=== PATIENT | female | born 1930 | race Caucasian/White ===

== ENCOUNTER → 2019-03-04 | Outpatient (CLI) | payer MEDICARE, OTHER ==
[~2019-03-04] MED LIST: HYDR-3165 PO
--- NOTE | 2019-03-04 13:04 | RAD ---
Five-view lumbar spine series Clinical indications: Low back pain FINDINGS: Mild dextroscoliosis is seen. There is mild slippage of L2 with respect to L3 towards the right side of 11 millimeters. The transverse processes are intact. 4 lumbar type vertebrae are evident. No compression fracture or discitis or lytic process is evident. There is severe degenerative disc space narrowing and moderate degenerative endplate spurring at L2-3 and L4-S1. Degenerative facet arthropathy is evident. No spondylolysis is seen. Minimal grade 1 anterolisthesis of L4-5 is seen. Calcified abdominal aortic aneurysm is seen which measures 3.6 cm in greatest AP dimension. IMPRESSION: Degenerative lumbar spondylosis. No acute compression fracture is evident. Calcified abdominal aortic aneurysm. Note is made of bibasilar interstitial lung disease. Electronically signed by: Mike Palacios MD (03/04/2019 1:01 PM) [facility]
== END | disposition home or self-care (01) ==
LOC: DXRAD 10:27
PROVIDERS: ATTEND Physician Assistant Medical
DX: M47.816 Spondylosis without myelopathy or radiculopathy, lumbar region (principal); I71.4 Abdominal aortic aneurysm, without rupture; J84.9 Interstitial pulmonary disease, unspecified; M12.88 Other specific arthropathies, not elsewhere classified, other specified site; M41.86 Other forms of scoliosis, lumbar region; M48.061 Spinal stenosis, lumbar region without neurogenic claudication; M46.06 Spinal enthesopathy, lumbar region; M43.16 Spondylolisthesis, lumbar region
CPT/HCPCS: 72110

== ENCOUNTER 2019-03-07 08:57 | Emergency (ER) | payer MEDICARE, OTHER ==
[~2019-03-07] VITALS: Ht 160 cm; Wt 64.4 kg
[2019-03-07 09:20] VITALS: BP 173/69
[2019-03-07 10:09] LABS: BASO % 1 % (0-3); EOS # 0.1 x10^3/uL (0.0-0.7); EOS % 1 % (0-3); HEMATOCRIT 39.1 % (36.0-47.0); HEMOGLOBIN 13.1 g/dL (12.0-15.5); LYMPH # 0.7 x10^3/uL (1.0-4.8); LYMPH % 9 % (24-48); MEAN CORPUSCULAR HEMOGLOBIN 31 pg (25-35); MEAN CORPUSCULAR HGB CONC 33 g/dL (31-37); MEAN CORPUSCULAR VOLUME 93 fL (79-100); MONO # 0.5 x10^3/uL (0.0-1.1); MONO % 7 % (0-9); NEUT # 6.4 x10^3uL (1.8-7.7); NEUT % 83 % (31-73); PLATELET COUNT 196 x10^3/uL (140-400); RED BLOOD COUNT 4.19 x10^6/uL (3.50-5.40); RED CELL DISTRIBUTION WIDTH 13.2 % (11.5-14.5); WHITE BLOOD COUNT 7.7 x10^3/uL (4.0-11.0)
[2019-03-07] MEDS ORDERED: HYDROcodone/APAP 5/325MG 1 TAB TABLET PO ONE (10:15)
[2019-03-07 10:22] LABS: ALBUMIN 3.4 g/dL (3.4-5.0); ALBUMIN/GLOBULIN RATIO 0.9 (1.0-1.7); CALCIUM 9.2 mg/dL (8.5-10.1); CREATININE 1.3 mg/dL (0.6-1.0); GFR 38.7; POTASSIUM 4.6 mmol/L (3.5-5.1); TOTAL BILIRUBIN 0.4 mg/dL (0.2-1.0); TOTAL PROTEIN 7.2 g/dL (6.4-8.2)
--- NOTE | 2019-03-07 10:41 | RAD ---
Examination: CT lumbar spine without contrast HISTORY: History of low back pain, left-sided radiculopathy COMPARISON: None available Technique: Axial CT images of the lumbar spine without contrast. Coronal and sagittal reformats are performed. Exposure: One or more of the following individualized dose reduction techniques were utilized for this examination: 1. Automated exposure control 2. Adjustment of the mA and/or kV according to patient size 3. Use of iterative reconstruction technique FINDINGS: There is mild compression change of L1 vertebral body with comminuted fracture of the inferior endplate of L1, best visualized on axial series 5 image 26. Diffuse disc bulge identified at L1-L2, L2-L3, L3-L4 and L5-S1 vertebral levels causing moderate spinal canal stenosis and moderate bilateral neural foraminal narrowing throughout. Severe intervertebral disc height loss identified at L2-L3, L4-L5 vertebral level. Mild facet degenerative changes identified in the lumbar spine Atrophic appearing left kidney. The abdominal aorta appears tortuous. Reticular interstitial lung markings identified in the bibasilar lungs. IMPRESSION: 1. Comminuted fracture of the inferior endplate of L1 vertebra with mild compression of L1 vertebra and inferior endplate Schmorl's node identified. 2. Severe degenerative changes lumbar spine. Electronically signed by: Randal Orozco MD (03/07/2019 10:38 AM) [facility]
[2019-03-07] MEDS ORDERED: HYDR-3165 PO (11:14)
--- NOTE | 2019-03-07 11:14 | PHYS DOC ---
Past History Past Medical History: No Pertinent History Past Surgical History: No Surgical History Alcohol Use: None Drug Use: None Adult General Chief Complaint Chief Complaint: BACK PAIN OR INJURY HPI HPI 88-year-old female presents with low back pain. The patient states that the pain started on Monday after she woke up. She was feeling fine prior to this. The pain has persisted onset time and is moderate in intensity. She went to her PCP who did plain film x-rays and found degenerative change, but no acute findings. She was placed on tramadol, but is not taking it because it makes her dizzy. The patient attempted to go back to her PCP today for an injection, but her provider is not in the office today. She decided to come to the emergency room for further evaluation. Patient denies trauma or falls. She does not take any medications. She has no significant medical history. She denies fever or chills. Review of Systems Review of Systems Constitutional: Denies fever or chills [] Eyes: Denies change in visual acuity, redness, or eye pain [] HENT: Denies nasal congestion or sore throat [] Respiratory: Denies cough or shortness of breath [] Cardiovascular: No additional information not addressed in HPI [] GI: Denies abdominal pain, nausea, vomiting, bloody stools or diarrhea [] : Denies dysuria or hematuria [] Musculoskeletal: Low back pain[] Integument: Denies rash or skin lesions [] Neurologic: Denies headache, focal weakness or sensory changes [] Endocrine: Denies polyuria or polydipsia [] All other systems were reviewed and found to be within normal limits, except as documented in this note. Current Medications Current Medications Current Medications Medications (Trade) Dose Ordered [facility] Start Time Stop Time Status Last Admin Dose Admin Acetaminophen/ Hydrocodone Bitart (Lortab 5/325) 1 tab 1X ONCE 03/07/19 10:15 03/07/19 10:19 DC 03/07/19 10:33 1 TAB Allergies Allergies Allergies Coded Allergies Type Severity Reaction Last Updated Verified No Known Drug Allergies 03/07/19 No Physical Exam Physical Exam Constitutional: Well developed, well nourished, no acute distress, non-toxic appearance. [] HENT: Normocephalic, atraumatic, bilateral external ears normal, oropharynx moist, no oral exudates, nose normal. [] Eyes: PERRLA, EOMI, conjunctiva normal, no discharge. [] Neck: Normal range of motion, no tenderness, supple, no stridor. [] Cardiovascular:Heart rate regular rhythm, no murmur [] Lungs & Thorax: Bilateral breath sounds clear to auscultation [] Abdomen: Bowel sounds normal, soft, no tenderness, no masses, no pulsatile masses. [] Skin: Warm, dry, no erythema, no rash. [] Back: No tenderness with palpation, no CVA tenderness. [] Extremities: No tenderness, no cyanosis, no clubbing, ROM intact, no edema. [] Neurologic: Alert and oriented X 3, normal motor function, normal sensory function, no focal deficits noted. [] Psychologic: Affect normal, judgement normal, mood normal. [] Current Patient Data Vital Signs Vital Signs Date Time Temp Pulse Resp B/P (MAP) Pulse Ox O2 Delivery O2 Flow Rate FiO2 03/07/19 10:33 97 Room Air 03/07/19 09:20 98.4 66 16 Lab Results Laboratory Tests Test 03/07/19 09:46 White Blood Count 7.7 x10^3/uL (4.0-11.0) Red Blood Count 4.19 x10^6/uL (3.50-5.40) Hemoglobin 13.1 g/dL (12.0-15.5) Hematocrit 39.1 % (36.0-47.0) Mean Corpuscular Volume 93 fL (79-100) Mean Corpuscular Hemoglobin 31 pg (25-35) Mean Corpuscular Hemoglobin Concent 33 g/dL (31-37) Red Cell Distribution Width 13.2 % (11.5-14.5) Platelet Count 196 x10^3/uL (140-400) Neutrophils (%) (Auto) 83 % (31-73) H Lymphocytes (%) (Auto) 9 % (24-48) L Monocytes (%) (Auto) 7 % (0-9) Eosinophils (%) (Auto) 1 % (0-3) Basophils (%) (Auto) 1 % (0-3) Neutrophils # (Auto) 6.4 x10^3uL (1.8-7.7) Lymphocytes # (Auto) 0.7 x10^3/uL (1.0-4.8) L Monocytes # (Auto) 0.5 x10^3/uL (0.0-1.1) Eosinophils # (Auto) 0.1 x10^3/uL (0.0-0.7) Basophils # (Auto) 0.0 x10^3/uL (0.0-0.2) Sodium Level 141 mmol/L (136-145) Potassium Level 4.6 mmol/L (3.5-5.1) Chloride Level 104 mmol/L (98-107) Carbon Dioxide Level 27 mmol/L (21-32) Anion Gap 10 (6-14) Blood Urea Nitrogen 26 mg/dL (7-20) H Creatinine 1.3 mg/dL (0.6-1.0) H Estimated GFR (Cockcroft-Gault) 38.7 BUN/Creatinine Ratio 20 (6-20) Glucose Level 96 mg/dL (70-99) Calcium Level 9.2 mg/dL (8.5-10.1) Total Bilirubin 0.4 mg/dL (0.2-1.0) Aspartate Amino Transferase (AST) 18 U/L (15-37) Alanine Aminotransferase (ALT) 18 U/L (14-59) Alkaline Phosphatase 71 U/L (46-116) Total Protein 7.2 g/dL (6.4-8.2) Albumin 3.4 g/dL (3.4-5.0) Albumin/Globulin Ratio 0.9 (1.0-1.7) L EKG EKG [] Radiology/Procedures Radiology/Procedures [] Impressions: Examination: CT lumbar spine without contrast HISTORY: History of low back pain, left-sided radiculopathy COMPARISON: None available Technique: Axial CT images of the lumbar spine without contrast. Coronal and sagittal reformats are performed. Exposure: One or more of the following individualized dose reduction techniques were utilized for this examination: 1. Automated exposure control 2. Adjustment of the mA and/or kV according to patient size 3. Use of iterative reconstruction technique FINDINGS: There is mild compression change of L1 vertebral body with comminuted fracture of the inferior endplate of L1, best visualized on axial series 5 image 26. Diffuse disc bulge identified at L1-L2, L2-L3, L3-L4 and L5-S1 vertebral levels causing moderate spinal canal stenosis and moderate bilateral neural foraminal narrowing throughout. Severe intervertebral disc height loss identified at L2-L3, L4-L5 vertebral level. Mild facet degenerative changes identified in the lumbar spine Atrophic appearing left kidney. The abdominal aorta appears tortuous. Reticular interstitial lung markings identified in the bibasilar lungs. IMPRESSION: 1. Comminuted fracture of the inferior endplate of L1 vertebra with mild compression of L1 vertebra and inferior endplate Schmorl's node identified. 2. Severe degenerative changes lumbar spine. Electronically signed by: Randal Orozco MD (03/07/2019 10:38 AM) [facility] DICTATED AND SIGNED BY: RANDAL OROZCO MD DATE: 03/07/19 1038 CC: JAYDEN MOFFETT DO; CARMELA CANTRELL ~ Course & Med Decision Making Course & Med Decision Making Pertinent Labs and Imaging studies reviewed. (See chart for details) The patient's labs are unremarkable. CT of the lumbar spine does show a compression fracture at L1 in addition to her degenerative change. See official report for more details. I will place the patient on [place] for her pain. She'll follow-up with her PCP. She is stable for discharge at this time. [] Dragon Disclaimer Dragon Disclaimer This electronic medical record was generated, in whole or in part, using a voice recognition dictation system. Departure Departure: Impression: Primary Impression: Compression fracture of L1 lumbar vertebra Additional Impression: Lumbar degenerative disc disease Disposition: 01 HOME, SELF-CARE Condition: STABLE Referrals: CARMELA CANTRELL (PCP) Patient Instructions: Back, Compression Fracture Scripts Hydrocodone Bit/Acetaminophen (NORCO 5-325 TABLET) 1 Each Tablet 1 TAB PO PRN Q6HRS PRN for PAIN, #20 TAB 0 Refills Prov: JAYDEN MOFFETT DO 03/07/19 Problem Qualifiers Primary Impression: Compression fracture of L1 lumbar vertebra Encounter type: initial encounter Qualified Codes: S32.010A - Wedge compression fracture of first lumbar vertebra, initial encounter for closed fracture JAYDEN MOFFETT DO Mar 07, 2019 11:14
== END 2019-03-07 11:36 | disposition home or self-care (01) ==
LOC: ER 08:57
DX: S32.010A Wedge compression fracture of first lumbar vertebra, initial encounter for closed fracture (principal); M51.36 Other intervertebral disc degeneration, lumbar region; X58.XXXA Exposure to other specified factors, initial encounter; Y93.89 Activity, other specified; Y92.89 Other specified places as the place of occurrence of the external cause; Y99.8 Other external cause status
CPT/HCPCS: 36415; 72131; 80053; 85025; 99285